=== PATIENT | female | born 1970 | race Caucasian/White ===

== ENCOUNTER 2017-04-20 10:18 | Emergency (ER) | payer OTHER, BC ==
[2017-04-20 10:28] VITALS: TEMP 96.9
[2017-04-20] MEDS ORDERED: DIPH,PERTUSS,TET(ADACEL) VAC/PF 0.5 ML (Tdap) IM ONE (10:28)
--- NOTE | 2017-04-20 10:32 | PDOC ---
Hand / Wrist Injury HPI - General Chief Complaint: Upper Extremity Problem/Injury Stated Complaint: FINGER INJURY Date Seen by Provider: 04/20/17 Time Seen by Provider: 10:25 Source: POSITIVE: Patient Exam Limitations: POSITIVE: No limitations Nurse's Notes Reviewed & Considered: Yes - History of Present Illness Initial Comments: The patient is a 47-year-old female who presents to the emergency department with an injury to her right index finger. She states that she was at work at the [employer] when a closing door caught her right index finger on the hinge side of the door as it was closing causing a crush injury to the index finger. She has a small laceration in the webspace between the index finger and the middle finger as well as pain to the index finger with any movement. She denies any other associated injuries or complaints. She is unsure when she last had a tetanus shot however thinks it's been more than 10 years. Have you received a tetanus shot in the past 10 years?: No - Patient Home Medications Home Medications: Home Medications NK [No Home Medications Reported] 04/20/17 - Patient Allergies Allergies/Adverse Reactions: Allergies Allergy/AdvReac Type Severity Reaction Status Date / Time Penicillins Allergy Severe ANAPHLAXIS Verified 04/20/17 10:22 Past Medical History - heen HEENT History: Denies History Cardiovascular History: Denies History Respiratory History: Asthma Gastrointestinal History: Irritable Bowel Syndrome Genitourinary History: Denies History Endocrine History: Denies History Musculoskeletal History: Denies History Prosthesis or Implant: No Neurological History: Denies History Blood Disorders: Denies History Psychiatric History: Depression, Anxiety Disorders History of Sexually Transmitted Diseases: No Female Reproductive History: Hysterectomy Obstetrical History: Denies History Cancer History: Denies History In Past Year Been Physically Harmed or Verbally Threatened: No History of MDRO: No History of Other Communicable Diseases: No Tobacco Use: Former Smoker Alcohol Use: None Substance Use Type: None Previous Surgical History: Yes Type / Date of Surgery: FULL HYSTERECTOMY Anesthesia Reactions: No Malignant Hyperthermia: No Significant Family History: No pertinent family hx Past Medical History Reviewed: Reviewed - No Changes ROS - Limitations ROS Limitations: No Limitations (Review of systems otherwise noncontributory, she denies any other associated injury or complaint) Hand / Wrist Injury Exam - General Appearance General Appearance: POSITIVE: Alert, Cooperative, No Acute Distress - Extremities Upper Extremity: POSITIVE: Other (examination of the right index finger reveals swelling to the finger with generalized tenderness to the finger itself especially at the base of the finger, good cap refill and sensation in the fingertip, no tenderness down in her hand, she does have a ring on the middle finger, the middle finger is uninjured, she states that this ring does not come off on a good day and decision was made to leave it alone for now) Neurovascular / Tendon: POSITIVE: Sensation Normal, Motor Normal, No Vascular Compromise Hand / Wrist Injury Progress - Results Reviewed by me Xrays/CTs/US Reviewed by me: Yes Radiology Findings: X-ray of the right index finger reveals no obvious fracture or dislocation. - Patient's Progress MDM / ED Course: Her tetanus was updated with Tdap. After x-rays were obtained the findings were reviewed with the patient. She did not have any evidence of fracture to the right index finger. She has a small laceration to the webspace between the index finger and middle finger which we elected to place a Steri-Strip and dressing. In addition the ring on the middle finger appeared to be resulting in some increased swelling to that middle finger. She is normally unable to remove this ring even when she does not have swelling. Decision was made to cut the ring and remove it. This was done with a ring cutter. The wound on the index finger was subsequently Steri-Stripped and dressing as well as finger splint applied. Wound care instructions were discussed. The patient is advised to take ibuprofen as needed for pain or swelling. She'll return to the emergency room if any worsening or change in symptoms. She is advised follow- up if continued pain or limited range of motion in 5-7 days. - Consult Counseled: POSITIVE: Patient, RE: Radiology Results, RE: DX, RE: Need for F/U Patient Care Time - Estimated PCT Patient Care Time (In Minutes): 15 Vital Signs - Recent Vital Signs Vital Signs: Vital Signs (Last 8 hours) Temp Pulse Resp BP Pulse Ox 04/20/17 10:18 96.9 F 68 16 134/94 98 - VS Reviewed Vital Signs Reviewed: Yes Discharge Clinical Impression: Crush injury to finger, Laceration of finger Discharge Disposition: Discharged to Home Condition: Stable Patient Instructions Given at Discharge: Laceration (ED), Crush Injury (ED) Additional Instructions: Ice and elevate the right index finger to help reduce swelling. Ibuprofen 600 mg every 6 hours as needed for pain/swelling. Keep the dressing in place for the first 24-48 hours, after that this can be changed as needed. Use the finger splint for comfort. Return to the emergency room if increased pain, sign of wound infection, any worsening or change in symptoms. Recommend follow- up with orthopedic surgery if continued pain or limited range of motion in 5-7 days. Follow Up With: NONE,NONE [Primary Care Provider] -
--- NOTE | 2017-04-20 11:56 | DI ---
XR FINGERS MIN 2VW,04/20/2017 10:28 AM: Clinical History: Crush injury. Previous Exam: None at this facility. Findings: 3 views of the right index finger are obtained, and demonstrate soft tissue swelling. Alignment is an atomic and no fractures are seen. Impression: Soft tissue swelling without underlying fracture.
[2017-04-20 12:46] VITALS: RESP 18
== END 2017-04-20 11:28 | disposition home or self-care (01) ==
LOC: ER 10:18
DX: S67.190A Crushing injury of right index finger, initial encounter (principal); S61.210A Laceration without foreign body of right index finger without damage to nail, initial encounter; W23.0XXA Caught, crushed, jammed, or pinched between moving objects, initial encounter; Y92.129 Unspecified place in nursing home as the place of occurrence of the external cause; Y99.0 Civilian activity done for income or pay
CPT/HCPCS: 73140; 90471; 99283